=== PATIENT | male | born 1960 | race Caucasian/White ===

== ENCOUNTER 2018-11-20 08:13 | Emergency (ER) | payer OTHER ==
[~2018-11-20] VITALS: Ht 182.9 cm; Wt 85.0 kg
[2018-11-20] MEDS ORDERED: NEXIUM20 MG (08:31)
[2018-11-20] MEDS ORDERED: ONDANSETRON HCL INJ 2MG/ML 2ML 2 MG/ML VIAL ONE (08:40)
[2018-11-20] MEDS ORDERED: SODIUM CHLORIDE 0.9% 1000ML 1,000 ML ONE (08:41)
[2018-11-20] MEDS ORDERED: DIATRIZOATE MEGL/DIATRIZOA SOD 30 ML BTL PO ONE (08:45)
[2018-11-20] MEDS: ONDANSETRON HCL INJ 2MG/ML 2ML 2 MG/ML VIAL IV ONE (08:50)
[2018-11-20] MEDS: SODIUM CHLORIDE 0.9% 1000ML 1,000 ML IV SCH (08:50)
--- NOTE | 2018-11-20 10:04 | NUR ---
IV infiltrated into left upper arm, iv disconnected and taken out, dressing applied and no bleeding or redness at site.
--- NOTE | 2018-11-20 10:06 | Diagnostic Imaging Report ---
CT of the abdomen and pelvis, without contrast, 11/20/2018. History: Acute abdominal pain. Comparison: None available. Technique: Multidetector CT scanning of the abdomen and pelvis was performed from the level of the lung bases to the inferior pubic rami without intravenous contrast. Oral contrast was administered. Coronal and sagittal multiplanar reformations were obtained. RADIATION DOSE: Total DLP: 565 mGy*cm Dose modulation, iterative reconstruction, and/or weight based adjustment of the mA/kV was utilized to reduce the radiation dose to as low as reasonably achievable. Discussion: Examination is limited without contrast. Lung bases: No visualized abnormalities. Abdomen: Cholecystectomy clips are present. The liver, biliary tree, spleen, pancreas, adrenal glands, and kidneys are unremarkable. The abdominal aorta is within normal limits for size. A retroaortic left renal vein is present. There is no bowel dilatation. The appendix is visualized and is normal. There is no evidence of adenopathy or free fluid. Pelvis: The bladder, prostate, and seminal vesicles are unremarkable. There is no evidence of free fluid or adenopathy. Calcified phleboliths are present bilaterally. Bones and soft tissues: Degenerative changes are present throughout the lumbar spine without evidence of lytic or sclerotic lesion. IMPRESSION: Status post cholecystectomy. Otherwise unremarkable noncontrast exam. No evidence of nephrolithiasis, bowel obstruction, or appendicitis. Signed by: Yazan Moreno on 11/20/2018 10:03 AM
[2018-11-20 10:42] VITALS: BP 138/83
== END 2018-11-20 10:41 | disposition home or self-care (01) ==
LOC: FSED 08:13
DX: K52.9 Noninfective gastroenteritis and colitis, unspecified (principal); K21.9 Gastro-esophageal reflux disease without esophagitis; Z85.46 Personal history of malignant neoplasm of prostate
CPT/HCPCS: 74176; 80048; 80076; 81003; 85025; 96374; 99284; J2405; J7030